=== PATIENT | female | born 1990 | race Caucasian/White ===

== ENCOUNTER 2018-10-16 17:20 | Emergency (ER) | payer OTHER ==
[2018-10-16 17:26] VITALS: BP 99/69
--- NOTE | 2018-10-16 17:40 | EDPHY ---
General Time Seen by Provider: 10/16/18 17:39 Narrative: CLINICAL IMPRESSION: Needle stick, blood borne pathogen exposure ASSESSMENT/PLAN: Patient is a 28-year-old female with a history of hypothyroidism, anxiety and depression who presents to the emergency department after being stuck with a needle at her work. Physical examination reveals a pinpoint break in the skin on her right pointer finger, consistent with needle stick. The patient had records to the [facility] blood work in status, no known blood borne pathogen history. This is very low risk. HIV 1 and 2, hep C antibody and hep B surface antigen ordered and are pending. The patient will call to obtain her results. 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 Return precautions discussed. CHIEF COMPLAINT: Needle stick HPI: Patient is a 28-year-old female with a history of hypothyroidism, depression and anxiety who presents to the emergency department after a needle stick exposure at her work. Patient is an employee at 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 The patient immediately cleansed the area, no significant bleeding. Patient did reviewed the resident's records, no known blood borne pathogen history. The patient denies any other injury or complaint. ROS: Otherwise negative, please see HPI. PHYSICAL EXAM: General Appearance: Well-developed, well-appearing and in no acute distress. Respiratory: There are no retractions, lungs are clear to auscultation. Cardiac: Regular rate and rhythm, no murmurs or gallops. Gastrointestinal: Abdomen is soft, nontender, bowel sounds normal, no masses/ hernia, no rigidity, guarding or focal peritoneal findings. Skin: Warm, dry, no rashes. Right pointer finger with pinpoint break in the skin consistent with needle stick. Neuro: Alert and oriented x3, Cranial nerves 2-12 grossly intact. No focal deficit. Psych: Normal mood, normal affect. No agitation. MEDICAL DECISION MAKING: Patient was seen independently. Secondary supervising physician at time of evaluation was Dr. Camacho, he did not evaluate this patient. Diagnosis: Needle stick, blood borne exposure. Summary: See Assessment and Plan for summary of ED visit Decision to obtain medical records or history from someone other than the patient: No Review / Summarize previous medical records: No Discussed patient with another provider: Yes, Dr. Camacho Patient Progress: Stable, discharged. - History Smoking Status: Former smoker - Objective Vital Signs: Initial Vital Signs Temperature (C) 37.2 C 10/16/18 17:24 Heart Rate 76 10/16/18 17:24 Respiratory Rate 18 10/16/18 17:24 Blood Pressure 99/69 L 10/16/18 17:24 O2 Sat (%) 96 10/16/18 17:24 O2 Delivery Mode Room Air Allergies/Adverse Reactions: No Known Allergies Allergy (Unverified 10/15/15 15:36) Home Medications: Medication Instructions Recorded Ativan 10/16/18 Bupropion Xl 10/16/18 Levothyroxine 10/16/18 Departure - Departure Disposition: Home, Routine, Self-Care Clinical Impression: Needle stick injury of finger of right hand Qualifiers: Encounter type: initial encounter Qualified Code(s): S61.239A - Puncture wound without foreign body of unspecified finger without damage to nail, initial encounter Condition: Good Instructions: Needle Stick Injuries (ED) Additional Instructions: DISCHARGE INSTRUCTIONS FROM YOUR PROVIDER Thank you for visiting our emergency department today. Please keep in mind that discharge from the emergency department does not mean that there is nothing wrong - it simply means that we have not identified an emergency condition that requires further evaluation or treatment in the hospital. You should always plan to follow up with primary care for re-evaluation of your condition in the next 2-3 days. It is important that you follow up both with your Employee Health and Human resources. Your HIV, hep B and hep C are pending. Please call to get your results. Return to the emergency department for any signs of infection including redness , swelling, drainage, pain or other concerning symptoms. People present with illnesses and injuries in different ways, and it is always possible that we have missed something. Again, thank you for choosing our emergency department. We hope that you feel better. Referrals: Aye Sorto MD [Medical Doctor] - As per Instructions (This is a referral for a primary care provider if you do not have 1. )
[2018-10-17 03:18] LABS: HEPATITIS B SURFACE ANTIGEN NEGATIVE (NEGATIVE); HEPATITIS C ANTIBODY TOTAL NEGATIVE (NEGATIVE)
== END 2018-10-16 18:16 | disposition home or self-care (01) ==
DX: S61.239A Puncture wound without foreign body of unspecified finger without damage to nail, initial encounter (principal); W46.1XXA Contact with contaminated hypodermic needle, initial encounter; Y99.0 Civilian activity done for income or pay
CPT/HCPCS: G0472